=== PATIENT | male | born 1975 | race Caucasian/White ===

== ENCOUNTER 2020-08-19 12:09 | Emergency (ER) | payer OTHER ==
[~2020-08-19] VITALS: Ht 177.8 cm; Wt 73.0 kg
[~2020-08-19 12:09] MED LIST: BUSPIRONE HCL5 MG PO; CIPRO500 MG PO; COLACE100 MG PO; DOC-Q-LACE100 MG PO; DULCOLAX5 MG PO; ECO81 PO; ENALAPRIL MALEAT5 MG PO; FLA500 PO; GLU500 PO; HYDROCODONE/ACE1 T12 PO; LIPI10 PO; METFORMIN HCL1000 MG PO; MYL80 CH; NOR10T PO; PERCOCET1 TA1 PO; PRILOSEC20 MG PO; RANITIDINE HCL150 M1 PO; ZOF4 PO; ZOFRAN ODT4 MG PO; ZOFRAN ODT4 MG SL
[2020-08-19 12:57] VITALS: Ht 177.8 cm; Wt 73.0 kg
[2020-08-19 16:43] VITALS: BP 136/82
== END 2020-08-19 16:43 | disposition home or self-care (01) ==
LOC: ED 12:09
DX: S43.401A Unspecified sprain of right shoulder joint, initial encounter (principal); E11.9 Type 2 diabetes mellitus without complications; X50.0XXA Overexertion from strenuous movement or load, initial encounter; Y93.89 Activity, other specified; Y92.89 Other specified places as the place of occurrence of the external cause; Y99.8 Other external cause status
CPT/HCPCS: J1885